=== PATIENT | male | born 1940 | race Hispanic/Latino ===

== ENCOUNTER 2021-04-03 18:15 | Inpatient (IN) | payer MEDICARE ==
[2021-04-03 19:19] LABS: Hemoglobin 5.6 g/dL (14.0-18.0); Mean Corpuscular HGB CONC 33.2 g/dL (32.0-36.0); Mean Corpuscular Volume 90.2 fL (78.0-98.0); Mean Platelet Volume 6.9 fL (7.4-10.4); Platelet Count 269 thou/uL (130-400); RBC Distribution Width 15.4 % (11.5-14.5); Red Blood Cell (RBC) Count 1.85 mill/uL (4.70-6.10); White Blood Cell (WBC) Count 29.4 thou/uL (4.8-10.8)
[2021-04-03 19:39] LABS: ALT (SGPT) 32 U/L (8-55); AST (SGOT) 51 U/L (5-34); Albumin 3.2 g/dL (3.4-4.8); Alkaline Phosphatase 515 U/L (40-110); Anion Gap 17 mmol/L (10-20); Anisocytosis SLIGHT = 6-15 cells (100X) (0-5/hpf); BUN (Urea Nitrogen) 26 mg/dL (8.4-25.7); Band 4 % (5-11); Bilirubin, Total 0.3 mg/dL (0.2-1.2); CK (CPK) 102 U/L (30-200); Calc. Creatinine Clearance 0 mL/min (70-130); Calcium 8.3 mg/dL (7.8-10.44); Carbon Dioxide 21 mmol/L (23-31); Chloride 107 mmol/L (98-107); Eosinophils 1 % (0-10); Glucose 207 mg/dL (83-110); Lymphocytes 65 % (21-51); MDiff Complete? YES; Monocytes 1 % (0-10); Neutrophil 29 % (42-75); Nucleated RBC 2 % (0); Platelet Morphology Comment Appears Adequate; Polychromasia MODERATE = 3-4 cells (100X) (0-2/hpf); Potassium 4.5 mmol/L (3.5-5.1); Protein, Total 6.2 g/dL (5.8-8.1); Sodium 140 mmol/L (136-145)
[2021-04-03] MEDS ORDERED: Fentanyl 100 MCG/2 ML VIAL ONE (20:40)
[2021-04-03] MEDS ORDERED: Pantoprazole 40 MG VIAL ONE (20:40)
[2021-04-03 21:12] LABS: Bilirubin Negative (Negative); Blood, Urine Negative (Negative); Clarity Clear (Clear); Glucose, Urine (Dipstick) Normal (Negative); Ketone, Urine Negative (Negative); Leukocyte Negative Leu/uL (Negative); Nitrite Negative (Negative); Protein, Urine (Dipstick) Negative (Neg-Trace); Specific Gravity, Urine 1.019 (1.002-1.036); Urobilinogen Normal mg/dL (Less than 2)
[2021-04-03 23:47] VITALS: BMI 30.2
[2021-04-04 04:47] LABS: Hemoglobin 6.1 g/dL (14.0-18.0); Mean Corpuscular HGB CONC 32.5 g/dL (32.0-36.0); Mean Corpuscular Hemoglobin 29.3 pg (27.0-31.0); Mean Corpuscular Volume 90.4 fL (78.0-98.0); Mean Platelet Volume 7.2 fL (7.4-10.4); Platelet Count 246 thou/uL (130-400); RBC Distribution Width 14.6 % (11.5-14.5); Red Blood Cell (RBC) Count 2.09 mill/uL (4.70-6.10); White Blood Cell (WBC) Count 30.9 thou/uL (4.8-10.8)
[2021-04-04 05:15] LABS: Lymphocytes 62 % (21-51); MDiff Complete? YES; Monocytes 4 % (0-10); Neutrophil 34 % (42-75); Nucleated RBC 1 % (0); Platelet Morphology Comment Appears Adequate
[2021-04-04] MEDS ORDERED: Acetaminophen 325 MG TAB PO PRN (06:14)
[2021-04-04] MEDS ORDERED: Ondansetron PF 4 MG/2 ML Vial IVP PRN (06:14)
[2021-04-04] MEDS ORDERED: Sodium Chloride 0.9% (PF) 10 ML VIAL FS PRN (06:30)
[2021-04-04 07:09] LABS: INR-International Normal Ratio 1.5; Prothrombin Time 18.5 sec (12.0-14.7)
[2021-04-04 07:10] LABS: PTT 34.8 sec (22.9-36.1)
[2021-04-04 07:17] LABS: Anion Gap 16 mmol/L (10-20); BUN (Urea Nitrogen) 24 mg/dL (8.4-25.7); Calc. Creatinine Clearance 79 mL/min (70-130); Calcium 8.2 mg/dL (7.8-10.44); Carbon Dioxide 21 mmol/L (23-31); Chloride 107 mmol/L (98-107); Glucose 179 mg/dL (83-110); Potassium 4.2 mmol/L (3.5-5.1); Sodium 140 mmol/L (136-145)
[2021-04-04] MEDS ORDERED: Dextrose 5% in Water 1,000 ML IV PRN (07:30)
[2021-04-04] MEDS ORDERED: HumaLOG 300 UNITS/3 ML VIAL SC PRN ×2 (07:30)
[2021-04-04] MEDS ORDERED: Dextrose 50% Abboject 50 ML SYRINGE SLOW IVP PRN (07:30)
[2021-04-04] MEDS ORDERED: Cefepime 1 GM in Sodium Chloride 0.9% 100 ML IVPB SCH (08:00)
[2021-04-04] MEDS ORDERED: Heparin 1,000 UNITS/ML VIAL ONE (08:38)
[2021-04-04] MEDS ORDERED: VANCOMYCIN 1.25 GM/250 ML BAG 1.25 GM in Premix Bag 1 BAG IVPB SCH (09:00)
[2021-04-04] MEDS ORDERED: Cefepime 1 GM VIAL ONE (09:59)
[2021-04-04] MEDS ORDERED: Pantoprazole 40 MG VIAL ONE (09:59)
[2021-04-04] MEDS: Pantoprazole 40 MG VIAL IVP SCH ×2 (11:18→20:23)
[2021-04-04 11:39] LABS: Hemoglobin 7.4 g/dL (14.0-18.0)
[2021-04-04] MEDS ORDERED: Morphine 2 MG/ML VIAL SLOW IVP PRN (17:19)
[2021-04-04 20:10] LABS: Hemoglobin 6.7 g/dL (14.0-18.0)
[2021-04-04] MEDS: Propranolol HCl 20 MG TAB PO SCH (20:22)
[2021-04-04] MEDS: Rosuvastatin 20 MG TAB PO SCH (20:22)
[2021-04-04] MEDS: Latanoprost 0.005% Ophth Soln 2.5 ml Bottle EA EYE SCH (20:23)
[2021-04-04] MEDS: traMADol HCl 50 MG TAB PO SCH (20:33)
[2021-04-04] MEDS: Lantus 1000 UNITS/10 ML VIAL SC SCH (21:21)
[2021-04-05 06:22] LABS: Anion Gap 11 mmol/L (10-20); BUN (Urea Nitrogen) 19 mg/dL (8.4-25.7); Calc. Creatinine Clearance 81 mL/min (70-130); Carbon Dioxide 25 mmol/L (23-31); Chloride 109 mmol/L (98-107); Glucose 145 mg/dL (83-110); Potassium 3.7 mmol/L (3.5-5.1); Sodium 141 mmol/L (136-145)
[2021-04-05 06:24] LABS: Band 2 % (5-11); Hemoglobin 6.3 g/dL (14.0-18.0); Hypochromia SLIGHT = 6-15 cells (100X) (0-5/hpf); Lymphocytes 63 % (21-51); MDiff Complete? YES; Mean Corpuscular HGB CONC 33.2 g/dL (32.0-36.0); Mean Corpuscular Volume 90.3 fL (78.0-98.0); Mean Platelet Volume 6.8 fL (7.4-10.4); Monocytes 1 % (0-10); Neutrophil 34 % (42-75); Nucleated RBC 2 % (0); Platelet Count 231 thou/uL (130-400); Platelet Morphology Comment Appears Adequate; RBC Distribution Width 14.5 % (11.5-14.5); Red Blood Cell (RBC) Count 2.08 mill/uL (4.70-6.10); White Blood Cell (WBC) Count 25.4 thou/uL (4.8-10.8)
[2021-04-05] MEDS: Mirtazapine 15 MG TAB PO SCH (09:28)
[2021-04-05] MEDS: Donepezil HCl 10 MG TAB PO SCH (09:28)
[2021-04-05] MEDS: Propranolol HCl 20 MG TAB PO SCH ×2 (09:28→21:04)
[2021-04-05] MEDS: tiZANidine HCl 4 MG TAB PO SCH (09:28)
[2021-04-05] MEDS: Pantoprazole 40 MG VIAL IVP SCH (09:30)
[2021-04-05] MEDS: traMADol HCl 50 MG TAB PO SCH ×2 (09:32→21:05)
[2021-04-05] MEDS ORDERED: Ketamine 50 MG/ML (10ML VIAL) ONE (12:13)
[2021-04-05] MEDS ORDERED: PROPOFOL 200 MG/20 ML VIAL ONE (12:28)
[2021-04-05] MEDS ORDERED: ePHEDrine Sulfate 50 MG/10 ML VIAL ONE (12:28)
[2021-04-05] MEDS: Lantus 1000 UNITS/10 ML VIAL SC SCH ×2 (12:39→21:05)
[2021-04-05] MEDS: Rosuvastatin 20 MG TAB PO SCH (21:04)
[2021-04-05] MEDS: Latanoprost 0.005% Ophth Soln 2.5 ml Bottle EA EYE SCH (21:04)
[2021-04-06 04:55] LABS: Hemoglobin 8.2 g/dL (14.0-18.0); Mean Corpuscular HGB CONC 33.9 g/dL (32.0-36.0); Mean Corpuscular Hemoglobin 30.3 pg (27.0-31.0); Mean Corpuscular Volume 89.6 fL (78.0-98.0); Mean Platelet Volume 6.9 fL (7.4-10.4); Platelet Count 238 thou/uL (130-400); RBC Distribution Width 15.4 % (11.5-14.5); Red Blood Cell (RBC) Count 2.71 mill/uL (4.70-6.10); White Blood Cell (WBC) Count 23.9 thou/uL (4.8-10.8)
[2021-04-06 05:05] LABS: Anion Gap 11 mmol/L (10-20); BUN (Urea Nitrogen) 18 mg/dL (8.4-25.7); Calc. Creatinine Clearance 74 mL/min (70-130); Calcium 8.1 mg/dL (7.8-10.44); Carbon Dioxide 26 mmol/L (23-31); Chloride 107 mmol/L (98-107); Glucose 144 mg/dL (83-110); Potassium 3.7 mmol/L (3.5-5.1); Sodium 140 mmol/L (136-145)
[2021-04-06 06:15] LABS: Band 2 % (5-11); Eosinophils 1 % (0-10); Lymphocytes 71 % (21-51); MDiff Complete? YES; Monocytes 2 % (0-10); Myelocyte 1 % (0-0); Neutrophil 23 % (42-75); Polychromasia SLIGHT = 2-3 cells (100X) (0-2/hpf)
[2021-04-06] MEDS: traMADol HCl 50 MG TAB PO SCH ×2 (10:12→21:38)
[2021-04-06] MEDS: Mirtazapine 15 MG TAB PO SCH (10:12)
[2021-04-06] MEDS: tiZANidine HCl 4 MG TAB PO SCH (10:12)
[2021-04-06] MEDS: Donepezil HCl 10 MG TAB PO SCH (10:12)
[2021-04-06] MEDS: Propranolol HCl 20 MG TAB PO SCH ×2 (10:13→21:37)
[2021-04-06] MEDS: Lantus 1000 UNITS/10 ML VIAL SC SCH ×2 (10:13→21:36)
[2021-04-06 16:20] LABS: Hemoglobin 8.1 g/dL (14.0-18.0)
[2021-04-06] MEDS ORDERED: Mag-Al Plus 1200 MG/1200 MG/120 MG/30 ML UDCUP PO PRN (17:36)
[2021-04-06] MEDS ORDERED: Bisacodyl 10 MG SUPP PR PRN (17:36)
[2021-04-06] MEDS: Docusate 100 MG CAP PO SCH (21:36)
[2021-04-06] MEDS: Latanoprost 0.005% Ophth Soln 2.5 ml Bottle EA EYE SCH (21:36)
[2021-04-06] MEDS: Rosuvastatin 20 MG TAB PO SCH (21:37)
[2021-04-07 05:18] LABS: Anion Gap 11 mmol/L (10-20); BUN (Urea Nitrogen) 15 mg/dL (8.4-25.7); Calc. Creatinine Clearance 79 mL/min (70-130); Calcium 8.2 mg/dL (7.8-10.44); Carbon Dioxide 27 mmol/L (23-31); Chloride 108 mmol/L (98-107); Glucose 134 mg/dL (83-110); Potassium 3.7 mmol/L (3.5-5.1); Sodium 142 mmol/L (136-145)
[2021-04-07 06:30] LABS: Anisocytosis SLIGHT = 6-15 cells (100X) (0-5/hpf); Band 7 % (5-11); Eosinophils 2 % (0-10); Hemoglobin 8.4 g/dL (14.0-18.0); Lymphocytes 68 % (21-51); MDiff Complete? YES; Mean Corpuscular HGB CONC 33.9 g/dL (32.0-36.0); Mean Corpuscular Hemoglobin 30.4 pg (27.0-31.0); Mean Corpuscular Volume 89.6 fL (78.0-98.0); Mean Platelet Volume 7.4 fL (7.4-10.4); Monocytes 2 % (0-10); Neutrophil 21 % (42-75); Nucleated RBC 3 % (0); Platelet Count 221 thou/uL (130-400); Platelet Morphology Comment Appears Adequate; Red Blood Cell (RBC) Count 2.75 mill/uL (4.70-6.10); White Blood Cell (WBC) Count 22.8 thou/uL (4.8-10.8)
[2021-04-07] MEDS ORDERED: Polyethylene Glycol 3350 17 GM Packet PO SCH (09:00)
[2021-04-07] MEDS: Mirtazapine 15 MG TAB PO SCH (09:08)
[2021-04-07] MEDS: Donepezil HCl 10 MG TAB PO SCH (09:08)
[2021-04-07] MEDS: Docusate 100 MG CAP PO SCH (09:08)
[2021-04-07] MEDS: traMADol HCl 50 MG TAB PO SCH (09:09)
[2021-04-07] MEDS: tiZANidine HCl 4 MG TAB PO SCH (09:10)
[2021-04-07] MEDS: Lantus 1000 UNITS/10 ML VIAL SC SCH (09:10)
[2021-04-07] MEDS: Propranolol HCl 20 MG TAB PO SCH (09:20)
[2021-04-07 11:35] VITALS: BP 153/67; TEMP 98.7
== END 2021-04-07 12:45 | disposition home or self-care (01) | DRG 378 ==
LOC: ERS 18:15 → ERHOLD 21:36 → 2NO 04-04 12:10
PROVIDERS: ADMIT Internal Medicine; ATTEND Internal Medicine
PROC: 0DJ08ZZ Inspection of Upper Intestinal Tract, Via Natural or Artificial Opening Endoscopic (ICD-10-PCS; principal; 2021-04-05)
DX: K29.81 Duodenitis with bleeding (principal); C91.10 Chronic lymphocytic leukemia of B-cell type not having achieved remission; D62 Acute posthemorrhagic anemia; N39.0 Urinary tract infection, site not specified; K29.41 Chronic atrophic gastritis with bleeding; E11.9 Type 2 diabetes mellitus without complications; F03.90 Unspecified dementia, unspecified severity, without behavioral disturbance, psychotic disturbance, mood disturbance, and anxiety; F41.9 Anxiety disorder, unspecified; E78.5 Hyperlipidemia, unspecified; K21.9 Gastro-esophageal reflux disease without esophagitis; G89.29 Other chronic pain; D72.829 Elevated white blood cell count, unspecified; G47.30 Sleep apnea, unspecified; R25.1 Tremor, unspecified; Z87.891 Personal history of nicotine dependence; Z79.4 Long term (current) use of insulin
CPT/HCPCS: 36415; 36416; 36430; 71045; 78278; 80048; 80053; 81003; 82274; 82550; 84484; 85025; 85610; 85730; 86850; 86900; 86901; 87040; 87149; 93005; 96374; 96375; A9604; C9113; J0692; J1644; J1815; J2704; J3010; J3370; J3490; P9016

== ENCOUNTER 2021-04-19 01:30 | Emergency (ER) | payer MEDICARE ==
[2021-04-19 02:05] LABS: Hemoglobin 7.4 g/dL (14.0-18.0); Mean Corpuscular HGB CONC 33.7 g/dL (32.0-36.0); Mean Corpuscular Hemoglobin 30.2 pg (27.0-31.0); Mean Corpuscular Volume 89.4 fL (78.0-98.0); Mean Platelet Volume 6.8 fL (7.4-10.4); Platelet Count 334 thou/uL (130-400); RBC Distribution Width 16.5 % (11.5-14.5); Red Blood Cell (RBC) Count 2.45 mill/uL (4.70-6.10); White Blood Cell (WBC) Count 28.1 thou/uL (4.8-10.8)
[2021-04-19] MEDS ORDERED: Mag-Al 1200 mg/1200 mg/30 ML UDCUP ONE (02:10)
[2021-04-19] MEDS ORDERED: Lidocaine Viscous Sol 2% 15 ml UD Cup ONE (02:10)
[2021-04-19 02:24] LABS: Lymphocytes 63 % (21-51); MDiff Complete? YES; Metamyelocyte 1 % (0-0); Monocytes 2 % (0-10); Neutrophil 31 % (42-75); Nucleated RBC 1 % (0); Platelet Morphology Comment Appears Adequate; Reactive Lymphocytes 3 % (0-10)
[2021-04-19 02:25] LABS: ALT (SGPT) 11 U/L (8-55); AST (SGOT) 24 U/L (5-34); Albumin 3.5 g/dL (3.4-4.8); Alkaline Phosphatase 848 U/L (40-110); Anion Gap 17 mmol/L (10-20); BUN (Urea Nitrogen) 14 mg/dL (8.4-25.7); Bilirubin, Total 0.5 mg/dL (0.2-1.2); Calc. Creatinine Clearance 0 mL/min (70-130); Calcium 8.7 mg/dL (7.8-10.44); Carbon Dioxide 21 mmol/L (23-31); Chloride 101 mmol/L (98-107); Globulin 3.4 g/dL (2.4-3.5); Glucose 189 mg/dL (83-110); Lipase 29 U/L (8-78); Potassium 3.7 mmol/L (3.5-5.1); Protein, Total 6.9 g/dL (5.8-8.1); Sodium 135 mmol/L (136-145)
[2021-04-19] MEDS ORDERED: Sucralfate 1 GM/10 ML UDCUP ONE (03:04)
[2021-04-19 03:12] LABS: Bilirubin Negative (Negative); Blood, Urine Negative (Negative); Clarity Clear (Clear); Glucose, Urine (Dipstick) Normal (Negative); Ketone, Urine Negative (Negative); Leukocyte Negative Leu/uL (Negative); Nitrite Negative (Negative); Protein, Urine (Dipstick) Negative (Neg-Trace); Specific Gravity, Urine 1.013 (1.002-1.036); Urobilinogen Normal mg/dL (Less than 2); pH, Urine 5.5 (5.0-9.0)
== END 2021-04-19 03:40 | disposition home or self-care (01) ==
LOC: ERS 01:30
DX: R12 Heartburn (principal); D64.9 Anemia, unspecified; K21.9 Gastro-esophageal reflux disease without esophagitis; E78.00 Pure hypercholesterolemia, unspecified; E11.9 Type 2 diabetes mellitus without complications; Z79.899 Other long term (current) drug therapy
CPT/HCPCS: 80053; 81003; 83690; 85025; 86850; 86900; 86901; 93005

== ENCOUNTER 2021-04-23 11:14 | Inpatient (IN) | payer MEDICARE ==
[2021-04-23] MEDS ORDERED: Mag-Al 1200 mg/1200 mg/30 ML UDCUP ONE (11:36)
[2021-04-23] MEDS ORDERED: Lidocaine Viscous Sol 2% 15 ml UD Cup ONE (11:36)
[2021-04-23] MEDS ORDERED: Pantoprazole 80 MG, Admixture Fee 1 EACH in Sodium Chloride 0.9% 100 ML IVPB SCH (11:45)
[2021-04-23 11:46] LABS: Hemoglobin 7.2 g/dL (14.0-18.0); Mean Corpuscular Hemoglobin 29.6 pg (27.0-31.0); Mean Corpuscular Volume 89.7 fL (78.0-98.0); Platelet Count 336 thou/uL (130-400); RBC Distribution Width 17.6 % (11.5-14.5); Red Blood Cell (RBC) Count 2.42 mill/uL (4.70-6.10); White Blood Cell (WBC) Count 36.4 thou/uL (4.8-10.8)
[2021-04-23 12:05] LABS: Anisocytosis SLIGHT = 6-15 cells (100X) (0-5/hpf); Band 6 % (5-11); Lymphocytes 62 % (21-51); MDiff Complete? YES; Neutrophil 32 % (42-75); Nucleated RBC 2 % (0); Platelet Morphology Comment Appears Adequate; Polychromasia MODERATE = 3-4 cells (100X) (0-2/hpf)
[2021-04-23 12:07] LABS: ALT (SGPT) 472 U/L (8-55); AST (SGOT) 895 U/L (5-34); Albumin 3.3 g/dL (3.4-4.8); Alkaline Phosphatase 870 U/L (40-110); Anion Gap 18 mmol/L (10-20); BUN (Urea Nitrogen) 14 mg/dL (8.4-25.7); Bilirubin, Total 0.6 mg/dL (0.2-1.2); Calc. Creatinine Clearance 0 mL/min (70-130); Calcium 8.4 mg/dL (7.8-10.44); Carbon Dioxide 20 mmol/L (23-31); Chloride 102 mmol/L (98-107); Globulin 3.4 g/dL (2.4-3.5); Glucose 194 mg/dL (83-110); Protein, Total 6.7 g/dL (5.8-8.1); Sodium 136 mmol/L (136-145)
[2021-04-23] MEDS ORDERED: Piperacillin/Tazobactam 3.375 GM VIAL ONE (12:41)
[2021-04-23] MEDS ORDERED: Ondansetron PF 4 MG/2 ML Vial IVP PRN (14:37)
[2021-04-23] MEDS ORDERED: Ondansetron ODT 4 MG TAB PO PRN (14:37)
[2021-04-23] MEDS ORDERED: Acetaminophen 325 MG TAB PO PRN (14:37)
[2021-04-23] MEDS ORDERED: Dextrose 50% Abboject 50 ML SYRINGE SLOW IVP PRN (14:37)
[2021-04-23] MEDS ORDERED: Dextrose 5% in Water 1,000 ML IV PRN (14:37)
[2021-04-23] MEDS ORDERED: HumaLOG 300 UNITS/3 ML VIAL SC PRN ×2 (14:37)
[2021-04-23 15:36] LABS: INR-International Normal Ratio 1.8; Prothrombin Time 21.3 sec (12.0-14.7)
[2021-04-23 15:41] LABS: Reticulocyte Count 3.8 % (0.5-1.5)
[2021-04-23 15:50] LABS: Iron 68 ug/dL (65-175); Iron Binding Capacity, Total 263 mcg/dL (261-462)
[2021-04-23 16:03] LABS: HBCM Index 0.13 S/CO (0-0.79); HBSAg Index 0.28 S/CO (0-0.99); Hep A IgM AB Non-Reactive (NonReactive); Hep A IgM S/CO 0.59 S/CO (0-0.79); Hep B Surf Ag Non-Reactive S/CO (NonReactive); Hep C IgG Ab Non-Reactive (NonReactive); Hep C Index 0.05 S/CO (0-0.79); Hepatitis B Core IgM Abs Non-Reactive (NonReactive)
[2021-04-23] MEDS: Dextrose 5 % And 0.9 % NaCl 1,000 ML IV SCH (16:24)
[2021-04-23] MEDS ORDERED: Bicalutamide 50 MG TAB PO SCH (20:00)
[2021-04-23 22:01] LABS: Bacteria/HPF None Seen HPF (None Seen); Bilirubin Negative (Negative); Blood, Urine Negative (Negative); Clarity Clear (Clear); Glucose, Urine (Dipstick) Normal (Negative); Ketone, Urine Negative (Negative); Leukocyte Negative Leu/uL (Negative); Nitrite Negative (Negative); Protein, Urine (Dipstick) Negative (Neg-Trace); RBC/HPF None Seen HPF (0-3); Specific Gravity, Urine 1.024 (1.002-1.036); Squamous Epithelial None Seen HPF (0-3); Urobilinogen Normal mg/dL (Less than 2); WBC/HPF 0-3 HPF (0-3); pH, Urine 5.5 (5.0-9.0)
[2021-04-23 22:05] LABS: Urine Culture Reflex No No
[2021-04-23 22:17] LABS: Amphetamine Not Detected (NotDetected); Barbiturates Screen Not Detected (NotDetected); Benzodiazepine Screen Not Detected (NotDetected); Cocaine Metabolite Screen Not Detected (NotDetected); Medtox Control Line Valid? VALID (VALID); Medtox Reader # READER 4; Methadone Not Detected (NotDetected); Methamphetamine Not Detected (NotDetected); Opiate Screen Not Detected (NotDetected); Oxycodone Screen Not Detected (NotDetected); Phencyclidine (PCP) Not Detected (NotDetected); THC/Cannabinoid Screen Not Detected (NotDetected); Tricyclic Screen Not Detected (NotDetected)
[2021-04-24 04:33] LABS: INR-International Normal Ratio 1.8
[2021-04-24] MEDS: Dextrose 5 % And 0.9 % NaCl 1,000 ML IV SCH ×2 (04:40→18:29)
[2021-04-24 04:52] LABS: ALT (SGPT) 481 U/L (8-55); AST (SGOT) 712 U/L (5-34); Albumin 2.9 g/dL (3.4-4.8); Alkaline Phosphatase 758 U/L (40-110); Bilirubin, Direct 0.3 mg/dL (0.1-0.3); Bilirubin, Total 0.5 mg/dL (0.2-1.2); Protein, Total 5.8 g/dL (5.8-8.1)
[2021-04-24 04:52] LABS: Acetaminophen Less than 6.0 mcg/mL (10.0-30.0); Anion Gap 14 mmol/L (10-20); BUN (Urea Nitrogen) 13 mg/dL (8.4-25.7); Calc. Creatinine Clearance 90 mL/min (70-130); Calcium 7.8 mg/dL (7.8-10.44); Carbon Dioxide 21 mmol/L (23-31); Chloride 106 mmol/L (98-107); Glucose 221 mg/dL (83-110); Potassium 3.3 mmol/L (3.5-5.1); Sodium 138 mmol/L (136-145)
[2021-04-24 05:55] LABS: Band 10 % (5-11); Hemoglobin 6.5 g/dL (14.0-18.0); Lymphocytes 55 % (21-51); MDiff Complete? YES; Mean Corpuscular HGB CONC 31.2 g/dL (32.0-36.0); Mean Corpuscular Hemoglobin 28.5 pg (27.0-31.0); Mean Corpuscular Volume 91.3 fL (78.0-98.0); Mean Platelet Volume 7.3 fL (7.4-10.4); Neutrophil 35 % (42-75); Nucleated RBC 1 % (0); Platelet Count 307 thou/uL (130-400); RBC Distribution Width 17.2 % (11.5-14.5); Red Blood Cell (RBC) Count 2.29 mill/uL (4.70-6.10); White Blood Cell (WBC) Count 28.1 thou/uL (4.8-10.8)
[2021-04-24] MEDS: CEFEPIME HCL IN DEXTROSE 5 % 1 GM in Premix Bag 1 BAG IVPB SCH ×2 (09:27→20:50)
[2021-04-24] MEDS: Bicalutamide 50 MG TAB PO SCH (09:28)
[2021-04-24 12:03] LABS: Hemoglobin 8.3 g/dL (14.0-18.0)
[2021-04-24] MEDS: Lantus 1000 UNITS/10 ML VIAL SC SCH (12:56)
[2021-04-24] MEDS ORDERED: Potassium Chloride 40 MEQ in Sodium Chloride 0.9% 250 ML 250 ML IVPB SCH (14:15)
[2021-04-24 14:40] VITALS: BMI 32.1
[2021-04-24] MEDS ORDERED: Morphine 2 MG/ML VIAL SLOW IVP PRN (17:40)
[2021-04-24] MEDS: HYDROcodone/Acetaminophen 5/325 mg Tablet PO PRN (20:49)
[2021-04-25] MEDS: HYDROcodone/Acetaminophen 5/325 mg Tablet PO PRN ×2 (04:49→14:11)
[2021-04-25 06:08] LABS: ALT (SGPT) 349 U/L (8-55); AST (SGOT) 368 U/L (5-34); Alkaline Phosphatase 746 U/L (40-110); Anion Gap 15 mmol/L (10-20); BUN (Urea Nitrogen) 11 mg/dL (8.4-25.7); Bilirubin, Total 0.6 mg/dL (0.2-1.2); Calc. Creatinine Clearance 99 mL/min (70-130); Carbon Dioxide 20 mmol/L (23-31); Chloride 111 mmol/L (98-107); Globulin 2.8 g/dL (2.4-3.5); Glucose 179 mg/dL (83-110); Potassium 3.2 mmol/L (3.5-5.1); Protein, Total 5.8 g/dL (5.8-8.1); Sodium 143 mmol/L (136-145)
[2021-04-25 06:16] LABS: Band 8 % (5-11); Hemoglobin 7.9 g/dL (14.0-18.0); Lymphocytes 61 % (21-51); MDiff Complete? YES; Mean Corpuscular HGB CONC 32.4 g/dL (32.0-36.0); Mean Corpuscular Hemoglobin 29.4 pg (27.0-31.0); Mean Corpuscular Volume 90.7 fL (78.0-98.0); Mean Platelet Volume 7.1 fL (7.4-10.4); Monocytes 3 % (0-10); Myelocyte 1 % (0-0); Neutrophil 27 % (42-75); Nucleated RBC 11 % (0); Platelet Count 273 thou/uL (130-400); Polychromasia SLIGHT = 2-3 cells (100X) (0-2/hpf); RBC Distribution Width 16.6 % (11.5-14.5); Red Blood Cell (RBC) Count 2.68 mill/uL (4.70-6.10); White Blood Cell (WBC) Count 23.2 thou/uL (4.8-10.8)
[2021-04-25] MEDS: Bicalutamide 50 MG TAB PO SCH (08:27)
[2021-04-25] MEDS: Dextrose 5 % And 0.9 % NaCl 1,000 ML IV SCH ×2 (08:27→20:00)
[2021-04-25] MEDS: Lantus 1000 UNITS/10 ML VIAL SC SCH (09:45)
[2021-04-25] MEDS: CEFEPIME HCL IN DEXTROSE 5 % 1 GM in Premix Bag 1 BAG IVPB SCH ×2 (09:46→20:00)
[2021-04-25 11:03] LABS: ANA Symphony (Qualitative) Negative (Negative); ANA Symphony (Quantitative) 0.1 Ratio (< 0.7 Negative); EliA Vaculitis New Method **** NEW METHOD ****; Mitochondrial Ab 0.9 U/mL (<4 Negative); dsDNA IgG Antibody 1.5 IU/mL (<10 Negative)
[2021-04-25] MEDS: Latanoprost 0.005% Ophth Soln 2.5 ml Bottle EA EYE SCH (20:00)
[2021-04-25] MEDS: Simethicone Chewable 80 MG TAB PO PRN (22:23)
[2021-04-26] MEDS: HYDROcodone/Acetaminophen 5/325 mg Tablet PO PRN ×3 (02:49→20:41)
[2021-04-26 06:33] LABS: ALT (SGPT) 245 U/L (8-55); AST (SGOT) 201 U/L (5-34); Albumin 2.8 g/dL (3.4-4.8); Alkaline Phosphatase 771 U/L (40-110); Anion Gap 13 mmol/L (10-20); BUN (Urea Nitrogen) 8 mg/dL (8.4-25.7); Bilirubin, Total 0.6 mg/dL (0.2-1.2); Calc. Creatinine Clearance 103 mL/min (70-130); Calcium 7.7 mg/dL (7.8-10.44); Carbon Dioxide 22 mmol/L (23-31); Chloride 109 mmol/L (98-107); Globulin 2.6 g/dL (2.4-3.5); Glucose 197 mg/dL (83-110); Protein, Total 5.4 g/dL (5.8-8.1); Sodium 141 mmol/L (136-145)
[2021-04-26 06:37] LABS: Potassium 2.9 mmol/L (3.5-5.1)
[2021-04-26] MEDS ORDERED: Electrolyte Replacement Protocol FS PRN (06:45)
[2021-04-26] MEDS: Potassium Chloride 20 MEQ TAB PO SCH ×2 (06:49→11:47)
[2021-04-26] MEDS ORDERED: Magnesium 2 GM/50 ML 2 GM in Premix Bag 1 BAG IVPB SCH (08:00)
[2021-04-26 08:31] LABS: Anisocytosis SLIGHT = 6-15 cells (100X) (0-5/hpf); Band 14 % (5-11); Eosinophils 2 % (0-10); Hemoglobin 7.7 g/dL (14.0-18.0); Lymphocytes 58 % (21-51); MDiff Complete? YES; Mean Corpuscular HGB CONC 33.3 g/dL (32.0-36.0); Mean Corpuscular Hemoglobin 29.8 pg (27.0-31.0); Mean Corpuscular Volume 89.6 fL (78.0-98.0); Mean Platelet Volume 7.5 fL (7.4-10.4); Monocytes 4 % (0-10); Neutrophil 22 % (42-75); Nucleated RBC 9 % (0); Platelet Count 226 thou/uL (130-400); Platelet Morphology Comment Appears Adequate; Polychromasia MARKED = >4 cells (100X) (0-2/hpf); RBC Distribution Width 16.5 % (11.5-14.5); Red Blood Cell (RBC) Count 2.58 mill/uL (4.70-6.10); White Blood Cell (WBC) Count 21.8 thou/uL (4.8-10.8)
[2021-04-26] MEDS: CEFEPIME HCL IN DEXTROSE 5 % 1 GM in Premix Bag 1 BAG IVPB SCH (09:02)
[2021-04-26] MEDS: Bicalutamide 50 MG TAB PO SCH (09:03)
[2021-04-26] MEDS: Lantus 1000 UNITS/10 ML VIAL SC SCH (09:04)
[2021-04-26] MEDS: Simethicone Chewable 80 MG TAB PO PRN (09:52)
[2021-04-26] MEDS: Dextrose 5 % And 0.9 % NaCl 1,000 ML IV SCH (10:30)
[2021-04-26] MEDS: Dronabinol 2.5 MG CAP PO SCH (18:05)
[2021-04-26] MEDS: Metoclopramide HCl 10 MG TAB PO SCH ×2 (18:05→20:41)
[2021-04-26] MEDS: Latanoprost 0.005% Ophth Soln 2.5 ml Bottle EA EYE SCH (20:41)
[2021-04-26] MEDS ORDERED: Mirtazapine 15 MG TAB PO SCH (21:00)
[2021-04-27] MEDS: HYDROcodone/Acetaminophen 5/325 mg Tablet PO PRN (06:04)
[2021-04-27 06:25] LABS: Hemoglobin 8.6 g/dL (14.0-18.0); Lymphocytes 74 % (21-51); MDiff Complete? YES; Mean Corpuscular Hemoglobin 28.8 pg (27.0-31.0); Mean Corpuscular Volume 89.8 fL (78.0-98.0); Mean Platelet Volume 7.1 fL (7.4-10.4); Monocytes 3 % (0-10); Neutrophil 23 % (42-75); Nucleated RBC 5 % (0); Platelet Count 226 thou/uL (130-400); Platelet Morphology Comment Appears Adequate; RBC Distribution Width 17.1 % (11.5-14.5); RBC Morphology Normal; White Blood Cell (WBC) Count 24.3 thou/uL (4.8-10.8)
[2021-04-27 06:29] LABS: ALT (SGPT) 215 U/L (8-55); AST (SGOT) 142 U/L (5-34); Albumin 3.1 g/dL (3.4-4.8); Alkaline Phosphatase 927 U/L (40-110); Anion Gap 13 mmol/L (10-20); BUN (Urea Nitrogen) 7 mg/dL (8.4-25.7); Bilirubin, Total 0.7 mg/dL (0.2-1.2); Calc. Creatinine Clearance 103 mL/min (70-130); Calcium 8.4 mg/dL (7.8-10.44); Carbon Dioxide 22 mmol/L (23-31); Chloride 108 mmol/L (98-107); Globulin 3.2 g/dL (2.4-3.5); Glucose 158 mg/dL (83-110); Potassium 3.4 mmol/L (3.5-5.1); Protein, Total 6.3 g/dL (5.8-8.1); Sodium 140 mmol/L (136-145)
[2021-04-27] MEDS ORDERED: Potassium Chloride 20 MEQ TAB PO SCH (07:45)
[2021-04-27] MEDS: Metoclopramide HCl 10 MG TAB PO SCH (08:12)
[2021-04-27] MEDS: Dronabinol 2.5 MG CAP PO SCH (08:12)
[2021-04-27] MEDS: Bicalutamide 50 MG TAB PO SCH (08:14)
[2021-04-27] MEDS: Lantus 1000 UNITS/10 ML VIAL SC SCH (08:15)
[2021-04-27 09:31] VITALS: BP 130/60; TEMP 98.7
[2021-04-27] MEDS ORDERED: BIOTENE MOUTH SPRAY 44.3 ML MM PRN (10:06)
== END 2021-04-27 14:32 | disposition home health service (06) | DRG 723 ==
LOC: ERS 11:14 → ONC 13:48
PROVIDERS: ADMIT Internal Medicine; ATTEND Family Medicine
PROC: 30233N1 Transfusion of Nonautologous Red Blood Cells into Peripheral Vein, Percutaneous Approach (ICD-10-PCS; principal; 2021-04-24)
DX: C61 Malignant neoplasm of prostate (principal); C91.10 Chronic lymphocytic leukemia of B-cell type not having achieved remission; C79.51 Secondary malignant neoplasm of bone; N13.0 Hydronephrosis with ureteropelvic junction obstruction; C79.01 Secondary malignant neoplasm of right kidney and renal pelvis; E87.6 Hypokalemia; R74.01 Elevation of levels of liver transaminase levels; D64.9 Anemia, unspecified; H40.9 Unspecified glaucoma; G30.9 Alzheimer's disease, unspecified; F02.80 Dementia in other diseases classified elsewhere, unspecified severity, without behavioral disturbance, psychotic disturbance, mood disturbance, and anxiety; E78.5 Hyperlipidemia, unspecified; E11.43 Type 2 diabetes mellitus with diabetic autonomic (poly)neuropathy; K31.84 Gastroparesis; E78.00 Pure hypercholesterolemia, unspecified; G89.29 Other chronic pain; M54.9 Dorsalgia, unspecified; K21.9 Gastro-esophageal reflux disease without esophagitis; R25.1 Tremor, unspecified; K80.20 Calculus of gallbladder without cholecystitis without obstruction; R97.20 Elevated prostate specific antigen [PSA]; Z87.891 Personal history of nicotine dependence; Z79.899 Other long term (current) drug therapy; Z83.42 Family history of familial hypercholesterolemia
CPT/HCPCS: 36415; 36416; 36430; 71045; 74177; 74220; 74230; 76705; 80048; 80053; 80074; 80076; 80143; 80306; 81001; 82140; 82728; 83516; 83540; 83550; 83735; 84153; 84484; 85025; 85046; 85610; 85730; 86038; 86225; 86850; 86900; 86901; 87040; 87149; 93005; 96365; 96366; 80307; C9113; J0692; J1815; J2405; J2543; J3475; J3480; J3490; J7050; P9016; Q0162; Q0167